=== PATIENT | female | born 1970 | race Caucasian/White ===

== ENCOUNTER 2017-01-30 18:33 | Emergency (ER) | payer OTHER ==
[~2017-01-30] VITALS: Ht 167.6 cm; Wt 96.4 kg
[~2017-01-30 18:33] MED LIST: LOPRESSOR25 MG PO; OMEPRAZOLE20 MG PO
[2017-01-30 19:01] LABS: BASOPHIL COUNT 0.1 K/uL (0-0.1); EOSINOPHIL (%) 1.4 % (0-5); EOSINOPHIL COUNT 0.2 K/uL (0-0.3); HEMATOCRIT 42.1 % (36.0-46.0); IMMATURE GRANULOCYTE (%) 0.5 % (0.0-0.7); IMMATURE GRANULOCYTE COUNT 0.1 K/uL; INSTRUMENT ABS NEUTROPHIL CT 11.8 K/uL; LYMPHOCYTE COUNT 1.1 K/uL (1.0-2.8); MCH 29.4 PG (29.0-34.0); MCHC 33.5 G/DL (30.0-36.0); MCV 87.7 FL (83-99); MEAN PLAT.VOLUME 10.3 uM^3 (9.5-12.4); MONOCYTE (%) 6.7 % (3-12); MONOCYTE COUNT 0.9 K/uL (0-0.8); NEUTROPHIL (%) 83.5 % (45-76); NEUTROPHIL COUNT 11.8 K/uL (1.8-6.4); PLATELET COUNT 228 K/uL (156-360); RBC DIS.WIDTH-CV 13.9 % (11.8-14.6); WHITE BLOOD COUNT 14.1 K/uL (4.1-10.2)
[2017-01-30 19:15] LABS: CHLORIDE 101 mEq/L (99-109); POTASSIUM 3.7 mEq/L (3.7-5.4); SODIUM 138 mEq/L (136-147)
[2017-01-30 19:17] LABS: GLUCOSE 257 mg/dL (70-99)
[2017-01-30 19:18] LABS: ANION GAP 13 MEQ/L (2-14)
[2017-01-30 19:19] LABS: TOTAL BILIRUBIN 0.8 mg/dL (0.0-1.0)
[2017-01-30 19:20] LABS: ALKALINE PHOSPHATASE 74 IU/L (3-129)
[2017-01-30 19:21] LABS: GFR ESTIMATE (CALCULATED) > 59 mL/min/
[2017-01-30 19:22] LABS: UREA NITROGEN (BUN) 19 mg/dL (9-23)
[2017-01-30 20:48] VITALS: BP 133/108
== END 2017-01-30 20:49 ==
LOC: EME 18:33
PROVIDERS: Emergency Medicine
DX: T40.1X1A Poisoning by heroin, accidental (unintentional), initial encounter (principal); F12.90 Cannabis use, unspecified, uncomplicated; E78.5 Hyperlipidemia, unspecified; I10 Essential (primary) hypertension; F17.210 Nicotine dependence, cigarettes, uncomplicated
CPT/HCPCS: 71010; 80053; 85025; 94640; 99281; 99285; J2310; J2765; J7030